=== PATIENT | male | born 1985 | race Caucasian/White ===

== ENCOUNTER 2020-07-29 20:26 | Emergency (ER) | payer OTHER ==
[~2020-07-29] VITALS: Ht 167.6 cm; Wt 86.2 kg
[2020-07-29 20:47] VITALS: Ht 167.6 cm; Wt 86.2 kg
[2020-07-29 21:33] VITALS: BP 139/96
== END 2020-07-29 21:36 ==
LOC: ED 20:26
DX: Z02.89 Encounter for other administrative examinations (principal)